=== PATIENT | male | born 1940 | race Caucasian/White ===

== ENCOUNTER 2022-02-01 12:31 | Inpatient (IN) ==
[2022-02-01 14:38] LABS: Basophils % 0.1 % (0.0-0.8); Hematocrit 40.6 VOL% (42.0-52.0); Hemoglobin 13.7 GM/DL (14.0-18.0); Immature Granulocytes % 0.9 %; Immature Granulocytes Absolute 0.09 #; Lymphocytes % 10.5 % (21.2-54.2); Mean Corpuscular HGB Conc 33.7 GM/DL (32-36); Mean Corpuscular Volume 97.8 FL (87-102); Mean Platelet Volume 10.5 FL (9.6-12.0); Monocytes % 10.4 % (1.7-12.7); Neutrophils % 78.1 % (38.7-73.9); Platelet Count 140 T/CUMM (130-400); Red Blood Count 4.15 MC/CUMM (3.8-5.5); Red Cell Distribution Width 12.2 % (9.3-17.3); White Blood Count 9.8 T/CUMM (4-12)
[2022-02-01 14:49] LABS: Albumin 2.8 G/DL (3.4-5.0); Bilirubin,Total 0.9 MG/DL (0.20-1.00); Calcium 9.4 MG/DL (8.5-10.1); Osmolality,Calculated 289.3 MOS/KG (273-304); Potassium 3.9 MMOL/L (3.5-5.1); Total Protein 7.1 G/DL (6.4-8.2)
[2022-02-01 16:08] LABS: Amorphous Crystals,Urine Occasional /HPF (Few); Mucus,Urine Occasional /LPF (Occasional); RBC,Urine 2 /HPF (0-4); Squamous Epithelial Cell,Urine Occasional /HPF (0-10); Urine Appearance Clear (Clear); Urine Color Yellow (Yellow); Urine Specific Gravity 1.015 (1.001-1.035); Urine pH 5.5 (4.5-8.0)
[2022-02-01 16:09] LABS: Bilirubin,Urine Negative (Negative); Blood, Urine Trace mg/dL (Negative); Glucose,Urine (UA) Negative (Negative); Ketones,Urine Negative (Negative); Nitrite,Urine Negative (Negative); Protein,Urine Negative (Negative); Urine Urobilinogen 0.2 eU/dL (<2.0)
[2022-02-01] MEDS ORDERED: GLUCAGON 1 MG VIAL IM PRN (17:11)
[2022-02-01] MEDS ORDERED: DOCUSATE SODIUM 100 MG CAPSULE PO PRN (17:11)
[2022-02-01] MEDS ORDERED: ONDANSETRON 4 MG/2 ML VIAL IV PRN (17:11)
[2022-02-01] MEDS ORDERED: ACETAMINOPHEN 325 MG TABLET PO PRN (17:11)
[2022-02-01] MEDS ORDERED: DEXTROSE 10% 250 ML BAG IV PRN (17:26)
[2022-02-01] MEDS ORDERED: SODIUM CHLORIDE 0.45% 1,000 ML IV SCH (17:30)
[2022-02-01] MEDS: ENOXAPARIN 40 MG/0.4 ML SYRINGE SUBCUT SCH (20:27)
[2022-02-01] MEDS: cefTRIAXone 2,000 MG in SODIUM CHLORIDE 0.9% 100 ML IV SCH (20:27)
[2022-02-01] MEDS: CYCLOBENZAPRINE 10 MG TABLET PO SCH (22:00)
[2022-02-02] MEDS: LEVOTHYROXINE 75 MCG TABLET PO SCH (05:38)
[2022-02-02 05:41] LABS: Basophils % 0.1 % (0.0-0.8); Eosinophils % 0.1 % (0.00-10.9); Hematocrit 39.1 VOL% (42.0-52.0); Hemoglobin 12.6 GM/DL (14.0-18.0); Immature Granulocytes % 0.5 %; Immature Granulocytes Absolute 0.05 #; Lymphocytes # 1.5 10*3/uL (1.4-4.0); Lymphocytes % 15.9 % (21.2-54.2); Mean Corpuscular HGB Conc 32.2 GM/DL (32-36); Mean Corpuscular Volume 101.3 FL (87-102); Mean Platelet Volume 10.7 FL (9.6-12.0); Monocytes # 1.1 10*3/uL (0.11-0.8); Monocytes % 12.4 % (1.7-12.7); Platelet Count 135 T/CUMM (130-400); Red Blood Count 3.86 MC/CUMM (3.8-5.5); Red Cell Distribution Width 12.3 % (9.3-17.3); White Blood Count 9.2 T/CUMM (4-12)
[2022-02-02 05:59] LABS: Calcium 9.2 MG/DL (8.5-10.1); Osmolality,Calculated 288.4 MOS/KG (273-304); Potassium 3.7 MMOL/L (3.5-5.1)
[2022-02-02 06:03] LABS: Folate 17.96 NG/ML (5.38-24.0); Vitamin B12 544 PG/ML (211-911)
[2022-02-02 06:04] LABS: Platelet Estimate Adequate
[2022-02-02 06:05] LABS: % Iron Saturation 9.7 % (18-50); Anisocytosis Slight; Ferritin 207.9 ng/mL (26-388); Macrocytosis Slight
[2022-02-02 06:44] LABS: Sedimentation Rate-Westergren 93 MM/HR (0-20)
[2022-02-02] MEDS: ASPIRIN EC 81 MG TABLET PO SCH ×2 (09:23→22:16)
[2022-02-02] MEDS: CYCLOBENZAPRINE 10 MG TABLET PO SCH ×3 (09:23→22:16)
[2022-02-02] MEDS: FUROSEMIDE 40 MG TABLET PO SCH ×2 (09:23→16:59)
[2022-02-02] MEDS: carvediloL 3.125 MG TABLET PO SCH ×2 (09:23→22:17)
[2022-02-02] MEDS: SOTALOL 80 MG TABLET PO SCH ×2 (09:23→22:16)
[2022-02-02] MEDS: ACETAMINOPHEN 500 MG TABLET PO PRN ×2 (10:22→22:17)
[2022-02-02] MEDS: CHOLECALCIFEROL 5,000 UNIT TABLET PO SCH (16:58)
[2022-02-02] MEDS: cefTRIAXone 2,000 MG in SODIUM CHLORIDE 0.9% 100 ML IV SCH (16:59)
[2022-02-02] MEDS: ENOXAPARIN 40 MG/0.4 ML SYRINGE SUBCUT SCH (17:16)
[2022-02-02] MEDS: ATORVASTATIN 20 MG TABLET PO SCH (22:16)
[2022-02-03] MEDS: LEVOTHYROXINE 75 MCG TABLET PO SCH (06:25)
[2022-02-03] MEDS ORDERED: ALBUTEROL/IPRATROPIUM 3 ML NEB RESP TX ONE (09:11)
[2022-02-03] MEDS ORDERED: ALBUTEROL/IPRATROPIUM 3 ML NEB RESP TX PRN (09:11)
[2022-02-03] MEDS: CYCLOBENZAPRINE 10 MG TABLET PO SCH ×3 (09:17→21:29)
[2022-02-03] MEDS: ACETAMINOPHEN 500 MG TABLET PO PRN ×2 (09:17→21:29)
[2022-02-03] MEDS: CHOLECALCIFEROL 5,000 UNIT TABLET PO SCH (09:17)
[2022-02-03] MEDS: ASPIRIN EC 81 MG TABLET PO SCH ×2 (09:17→21:29)
[2022-02-03] MEDS: carvediloL 3.125 MG TABLET PO SCH ×2 (09:17→21:29)
[2022-02-03] MEDS: FUROSEMIDE 40 MG TABLET PO SCH ×2 (09:17→15:53)
[2022-02-03] MEDS: SOTALOL 80 MG TABLET PO SCH ×2 (09:17→21:29)
[2022-02-03 09:38] LABS: Arterial Base Excess iSTAT 2 MMOL/L (-2.5-2.5); Arterial Bicarbonate iSTAT 26.7 MMOL/L (20-26); Arterial O2 Saturation iSTAT 95 % (95-100); Arterial PCO2 iSTAT 39 MM HG (35-48); Arterial PO2 iSTAT 74 MM HG (80-95); Arterial Total CO2 iSTAT 28 MMO/L (23-27); Arterial pH iSTAT 7.438 (7.35-7.45)
[2022-02-03 10:19] LABS: Basophils % 0.2 % (0.0-0.8); Eosinophils % 0.3 % (0.00-10.9); Hematocrit 42.3 VOL% (42.0-52.0); Hemoglobin 13.9 GM/DL (14.0-18.0); Immature Granulocytes % 0.7 %; Immature Granulocytes Absolute 0.09 #; Lymphocytes # 1.9 10*3/uL (1.4-4.0); Mean Corpuscular HGB Conc 32.9 GM/DL (32-36); Mean Corpuscular Volume 99.3 FL (87-102); Mean Platelet Volume 11.1 FL (9.6-12.0); Monocytes # 0.9 10*3/uL (0.11-0.8); Monocytes % 7.4 % (1.7-12.7); Neutrophils % 76.4 % (38.7-73.9); Platelet Count 169 T/CUMM (130-400); Red Blood Count 4.26 MC/CUMM (3.8-5.5); Red Cell Distribution Width 12.2 % (9.3-17.3); White Blood Count 12.4 T/CUMM (4-12)
[2022-02-03 10:35] LABS: Calcium 9.5 MG/DL (8.5-10.1); Osmolality,Calculated 292.1 MOS/KG (273-304); Potassium 3.9 MMOL/L (3.5-5.1)
[2022-02-03] MEDS ORDERED: FUROSEMIDE 40 MG/4 ML VIAL IV ONE (11:27)
[2022-02-03] MEDS: ASCORBIC ACID 500 MG TABLET PO SCH ×2 (13:50→21:29)
[2022-02-03] MEDS: cefTRIAXone 2,000 MG in SODIUM CHLORIDE 0.9% 100 ML IV SCH (17:21)
[2022-02-03] MEDS: ATORVASTATIN 20 MG TABLET PO SCH (21:29)
[2022-02-04] MEDS ORDERED: FUROSEMIDE 40 MG/4 ML VIAL IV ONE (01:31)
[2022-02-04 05:04] LABS: Basophils % 0.2 % (0.0-0.8); Eosinophils # 0.2 10*3/uL (0.0-0.87); Eosinophils % 1.4 % (0.00-10.9); Hematocrit 39.4 VOL% (42.0-52.0); Hemoglobin 12.8 GM/DL (14.0-18.0); Immature Granulocytes % 0.9 %; Lymphocytes # 1.7 10*3/uL (1.4-4.0); Lymphocytes % 16.3 % (21.2-54.2); Mean Corpuscular HGB Conc 32.5 GM/DL (32-36); Mean Corpuscular Volume 100.3 FL (87-102); Monocytes # 1.1 10*3/uL (0.11-0.8); Monocytes % 10.1 % (1.7-12.7); Neutrophils % 71.1 % (38.7-73.9); Platelet Count 161 T/CUMM (130-400); Red Blood Count 3.93 MC/CUMM (3.8-5.5); Red Cell Distribution Width 12.2 % (9.3-17.3); White Blood Count 10.6 T/CUMM (4-12)
[2022-02-04 05:16] LABS: Calcium 9.6 MG/DL (8.5-10.1); Osmolality,Calculated 287.4 MOS/KG (273-304); Potassium 3.9 MMOL/L (3.5-5.1)
[2022-02-04] MEDS: LEVOTHYROXINE 75 MCG TABLET PO SCH (05:39)
[2022-02-04] MEDS: CYCLOBENZAPRINE 10 MG TABLET PO SCH ×3 (09:27→20:18)
[2022-02-04] MEDS: carvediloL 6.25 MG TABLET PO SCH ×2 (09:27→20:18)
[2022-02-04] MEDS: ASCORBIC ACID 500 MG TABLET PO SCH ×2 (09:27→20:18)
[2022-02-04] MEDS: POLYETHYLENE GLYCOL POWDER 17 GM PACK PO SCH ×2 (09:27→20:18)
[2022-02-04] MEDS: SOTALOL 80 MG TABLET PO SCH ×2 (09:28→20:18)
[2022-02-04] MEDS: CHOLECALCIFEROL 5,000 UNIT TABLET PO SCH (09:28)
[2022-02-04] MEDS: FUROSEMIDE 40 MG TABLET PO SCH ×2 (09:28→16:36)
[2022-02-04] MEDS: ASPIRIN EC 81 MG TABLET PO SCH ×2 (09:28→20:17)
[2022-02-04] MEDS ORDERED: TUBERCULIN SKIN TEST 0.1 ML SYRINGE INTRADERM ONE (15:18)
[2022-02-04] MEDS ORDERED: VANCOMYCIN INJ 1,000 MG in SODIUM CHLORIDE 0.9% 250 ML IV SCH (16:00)
[2022-02-04] MEDS: ACETAMINOPHEN 500 MG TABLET PO PRN ×2 (16:36→22:51)
[2022-02-04] MEDS: TAMSULOSIN 0.4 MG CAPSULE PO SCH (16:38)
[2022-02-04] MEDS: VANCOMYCIN INJ 1,750 MG in SODIUM CHLORIDE 0.9% 500 ML IV SCH (17:51)
[2022-02-04] MEDS: ATORVASTATIN 20 MG TABLET PO SCH (20:18)
[2022-02-05 05:03] LABS: Basophils % 0.2 % (0.0-0.8); Eosinophils # 0.3 10*3/uL (0.0-0.87); Eosinophils % 3.1 % (0.00-10.9); Hematocrit 38.2 VOL% (42.0-52.0); Hemoglobin 12.5 GM/DL (14.0-18.0); Immature Granulocytes % 0.7 %; Immature Granulocytes Absolute 0.06 #; Lymphocytes # 1.8 10*3/uL (1.4-4.0); Mean Corpuscular HGB Conc 32.7 GM/DL (32-36); Mean Corpuscular Volume 99.7 FL (87-102); Mean Platelet Volume 10.5 FL (9.6-12.0); Monocytes # 0.8 10*3/uL (0.11-0.8); Monocytes % 9.4 % (1.7-12.7); Neutrophils % 64.6 % (38.7-73.9); Platelet Count 186 T/CUMM (130-400); Red Blood Count 3.83 MC/CUMM (3.8-5.5); Red Cell Distribution Width 12.1 % (9.3-17.3); White Blood Count 8.1 T/CUMM (4-12)
[2022-02-05 05:30] LABS: Calcium 8.9 MG/DL (8.5-10.1); Osmolality,Calculated 291.4 MOS/KG (273-304); Potassium 3.5 MMOL/L (3.5-5.1)
[2022-02-05] MEDS: VANCOMYCIN INJ 1,750 MG in SODIUM CHLORIDE 0.9% 500 ML IV SCH (05:52)
[2022-02-05] MEDS: LEVOTHYROXINE 75 MCG TABLET PO SCH (05:52)
[2022-02-05] MEDS: POLYETHYLENE GLYCOL POWDER 17 GM PACK PO SCH (08:48)
[2022-02-05] MEDS: CYCLOBENZAPRINE 10 MG TABLET PO SCH ×2 (08:48→15:18)
[2022-02-05] MEDS: ASPIRIN EC 81 MG TABLET PO SCH (08:48)
[2022-02-05] MEDS: ASCORBIC ACID 500 MG TABLET PO SCH (08:48)
[2022-02-05] MEDS: FUROSEMIDE 40 MG TABLET PO SCH ×2 (08:48→15:18)
[2022-02-05] MEDS: CHOLECALCIFEROL 5,000 UNIT TABLET PO SCH (08:49)
[2022-02-05] MEDS: SOTALOL 80 MG TABLET PO SCH (08:49)
[2022-02-05] MEDS: carvediloL 6.25 MG TABLET PO SCH ×2 (08:49→17:06)
[2022-02-05] MEDS: TAMSULOSIN 0.4 MG CAPSULE PO SCH (08:49)
[2022-02-05] MEDS ORDERED: POTASSIUM CHLORIDE 20 MEQ TABLET PO ONE (09:30)
[2022-02-05] MEDS ORDERED: cefTRIAXone 2,000 MG in SODIUM CHLORIDE 0.9% 100 ML IV SCH (10:00)
[2022-02-05] MEDS ORDERED: SOTALOL 80 MG TABLET PO ONE (12:40)
[2022-02-05 16:43] VITALS: BP 102/61
[2022-02-05] MEDS ORDERED: SOTALOL 80 MG TABLET PO SCH (21:00)
[2022-02-06] MEDS ORDERED: SOTALOL 80 MG TABLET PO SCH (09:00)
[2022-02-07 13:34] LABS: Hb A 96.3 % (95.8-98.0); Hb A2 2.6 % (2.0-3.3); Hb F 1.1 % (0.0-0.9)
[2022-02-07 13:41] LABS: Hemoglobin A1 (Alkaline) 95.2 % (96.5-98.5); Hemoglobin A2 (Alkaline) 2.1 % (1.5-3.5); Hemoglobin F (Alkaline) 2.7 %
== END 2022-02-05 17:22 | DRG 552 ==
LOC: EDBD → EDUNIT# → N.ED 12:31 → N.EDINP 12:31 → SUATTDRO 17:11 → N.EDINP 19:01 → N.3E 19:31
PROVIDERS: ADMIT Internal Medicine; ATTEND Internal Medicine Geriatric Medicine

== ENCOUNTER 2022-02-27 12:11 | Inpatient (IN) ==
[2022-02-27 12:52] LABS: Basophils % 0.1 % (0.0-0.8); Eosinophils % 0.2 % (0.00-10.9); Hemoglobin 11.1 GM/DL (14.0-18.0); Immature Granulocytes Absolute 0.09 #; Lymphocytes % 11.4 % (21.2-54.2); Mean Corpuscular HGB Conc 30.8 GM/DL (32-36); Mean Corpuscular Volume 103.2 FL (87-102); Mean Platelet Volume 10.4 FL (9.6-12.0); Monocytes # 0.6 10*3/uL (0.11-0.8); Monocytes % 7.2 % (1.7-12.7); Neutrophils % 80.1 % (38.7-73.9); Platelet Count 199 T/CUMM (130-400); Red Blood Count 3.49 MC/CUMM (3.8-5.5); Red Cell Distribution Width 12.4 % (9.3-17.3); White Blood Count 8.6 T/CUMM (4-12)
[2022-02-27 13:12] LABS: Alanine Aminotransferase 49 U/L (16-61); Albumin 2.1 G/DL (3.4-5.0); Alkaline Phosphatase 133 U/L (45-117); Aspartate Amino Transferase 32 U/L (0-37); Bilirubin,Total < 0.39 MG/DL (0.20-1.00); Blood Urea Nitrogen 26 MG/DL (7-18); Calcium 9.6 MG/DL (8.5-10.1); Carbon Dioxide 39 MMOL/L (21-32); Chloride 96 MMOL/L (98-107); Glucose 107 MG/DL (74-106); Osmolality,Calculated 274.1 MOS/KG (273-304); Potassium 5.3 MMOL/L (3.5-5.1); Sodium 135 MMOL/L (136-145); Total Protein 7.3 G/DL (6.4-8.2)
[2022-02-27] MEDS ORDERED: FUROSEMIDE 40 MG/4 ML VIAL IV STA (13:36)
[2022-02-27 13:47] LABS: Arterial Base Excess iSTAT 13 MMOL/L (-2.5-2.5); Arterial Bicarbonate iSTAT 42.7 MMOL/L (20-26); Arterial O2 Saturation iSTAT 93 % (95-100); Arterial PCO2 iSTAT 91 MM HG (35-48); Arterial PO2 iSTAT 82 MM HG (80-95); Arterial Total CO2 iSTAT 45 MMO/L (23-27); Arterial pH iSTAT 7.281 (7.35-7.45)
[2022-02-27 13:54] LABS: INR 1.1; PT Patient Result 11.9 SECS (10.5-12.0); Partial Thromboplastin Time 28.7 SECS (23.7-32.9)
[2022-02-27 13:57] LABS: Bacteria,Urine Occasional /HPF (Few); Hyaline Casts,Urine 9 /LPF (0-3); Mucus,Urine Occasional /LPF (Occasional); RBC,Urine 7 /HPF (0-4); Squamous Epithelial Cell,Urine Occasional /HPF (0-10)
[2022-02-27 14:00] LABS: Bilirubin,Urine Negative (Negative); Blood, Urine Negative (Negative); Glucose,Urine (UA) Negative (Negative); Ketones,Urine Negative (Negative); Nitrite,Urine Negative (Negative); Protein,Urine Trace mg/dL (Negative); Urine Appearance Slightly Cloudy (Clear); Urine Color Yellow (Yellow); Urine Urobilinogen 0.2 eU/dL (<2.0); Urine pH 5.5 (4.5-8.0)
[2022-02-27 14:30] LABS: Barbiturates Screen,Urine Negative (Negative); Benzodiazepines Screen,Urine Negative (Negative); Cannabinoid Screen,Urine Negative (Negative); Opiate Screen,Urine Negative (Negative); Phencyclidine Screen,Urine Negative (Negative)
[2022-02-27] MEDS ORDERED: ALBUTEROL 2.5 MG/3 ML NEB RESP TX PRN (14:36)
[2022-02-27] MEDS ORDERED: DOCUSATE SODIUM 100 MG CAPSULE PO PRN (14:40)
[2022-02-27] MEDS ORDERED: ACETAMINOPHEN 500 MG TABLET PO PRN (14:40)
[2022-02-27] MEDS ORDERED: ONDANSETRON ODT 4 MG TABLET PO PRN (14:40)
[2022-02-27] MEDS ORDERED: ALBUTEROL/IPRATROPIUM 3 ML NEB RESP TX PRN (14:40)
[2022-02-27] MEDS ORDERED: CYCLOBENZAPRINE 10 MG TABLET PO PRN (14:46)
[2022-02-27 16:16] LABS: Glucose,Urine (UA) Negative (Negative); Ketones,Urine Negative (Negative); Nitrite,Urine Negative (Negative); Protein,Urine Negative (Negative); Urine Appearance Clear (Clear); Urine Color Light Yellow (Yellow); Urine pH 5.5 (4.5-8.0)
[2022-02-27 16:17] LABS: Bilirubin,Urine Negative (Negative); Blood, Urine Large mg/dL (Negative); Urine Urobilinogen 0.2 eU/dL (<2.0)
[2022-02-27 16:24] LABS: Hyaline Casts,Urine 3 /LPF (0-3); Mucus,Urine Occasional /LPF (Occasional); RBC,Urine 53 /HPF (0-4); Squamous Epithelial Cell,Urine Occasional /HPF (0-10)
[2022-02-27] MEDS: FUROSEMIDE 40 MG/4 ML VIAL IV SCH (16:53)
[2022-02-27 17:14] LABS: Arterial Base Excess iSTAT 16 MMOL/L (-2.5-2.5); Arterial Bicarbonate iSTAT 46.2 MMOL/L (20-26); Arterial O2 Saturation iSTAT 99 % (95-100); Arterial PCO2 iSTAT 97 MM HG (35-48); Arterial PO2 iSTAT 195 MM HG (80-95); Arterial Total CO2 iSTAT 49 MMO/L (23-27); Arterial pH iSTAT 7.286 (7.35-7.45)
[2022-02-27] MEDS: cefTRIAXone 1,000 MG in SODIUM CHLORIDE 0.9% 100 ML IV SCH (17:53)
[2022-02-27] MEDS: carvediloL 12.5 MG TABLET PO SCH (17:54)
[2022-02-27] MEDS ORDERED: ETOMIDATE 20 MG/10 ML VIAL IV ONE ×2 (18:19→18:31)
[2022-02-27] MEDS ORDERED: ROCURONIUM 100 MG/10 ML VIAL IV ONE ×2 (18:20→18:32)
[2022-02-27 18:22] LABS: Arterial Base Excess iSTAT 15 MMOL/L (-2.5-2.5); Arterial Bicarbonate iSTAT 45.1 MMOL/L (20-26); Arterial O2 Saturation iSTAT 99 % (95-100); Arterial PCO2 iSTAT 91 MM HG (35-48); Arterial PO2 iSTAT 148 MM HG (80-95); Arterial Total CO2 iSTAT 48 MMO/L (23-27); Arterial pH iSTAT 7.304 (7.35-7.45)
[2022-02-27 19:34] LABS: Arterial Base Excess iSTAT 17 MMOL/L (-2.5-2.5); Arterial Bicarbonate iSTAT 41.4 MMOL/L (20-26); Arterial O2 Saturation iSTAT 99 % (95-100); Arterial PCO2 iSTAT 45 MM HG (35-48); Arterial PO2 iSTAT 107 MM HG (80-95); Arterial Total CO2 iSTAT 43 MMO/L (23-27); Arterial pH iSTAT 7.577 (7.35-7.45)
[2022-02-27 20:13] LABS: Calcium 9.6 MG/DL (8.5-10.1); Potassium 4.7 MMOL/L (3.5-5.1)
[2022-02-27] MEDS: POLYETHYLENE GLYCOL POWDER 17 GM PACK PO SCH (20:38)
[2022-02-27] MEDS: ENOXAPARIN 40 MG/0.4 ML SYRINGE SUBCUT SCH (20:38)
[2022-02-27] MEDS: SOTALOL 80 MG TABLET PO SCH (20:38)
[2022-02-27] MEDS: ASCORBIC ACID 500 MG TABLET PO SCH (20:38)
[2022-02-27] MEDS: MIDAZOLAM 100 MG in SODIUM CHLORIDE 0.9% 80 ML IV PRN (20:46)
[2022-02-27] MEDS: fentaNYL INJ 1,250 MCG in SODIUM CHLORIDE 0.9% 225 ML IV PRN (22:05)
[2022-02-28 01:45] LABS: Arterial Base Excess iSTAT 16 MMOL/L (-2.5-2.5); Arterial Bicarbonate iSTAT 38.6 MMOL/L (20-26); Arterial O2 Saturation iSTAT 96 % (95-100); Arterial PCO2 iSTAT 38 MM HG (35-48); Arterial PO2 iSTAT 66 MM HG (80-95); Arterial Total CO2 iSTAT 40 MMO/L (23-27); Arterial pH iSTAT 7.611 (7.35-7.45)
[2022-02-28 04:55] LABS: Arterial Base Excess iSTAT 14 MMOL/L (-2.5-2.5); Arterial Bicarbonate iSTAT 39.4 MMOL/L (20-26); Arterial O2 Saturation iSTAT 97 % (95-100); Arterial PCO2 iSTAT 52 MM HG (35-48); Arterial PO2 iSTAT 87 MM HG (80-95); Arterial Total CO2 iSTAT 41 MMO/L (23-27)
[2022-02-28] MEDS: LEVOTHYROXINE 75 MCG TABLET PO SCH (05:31)
[2022-02-28 05:32] LABS: Basophils % 0.3 % (0.0-0.8); Eosinophils # 0.1 10*3/uL (0.0-0.87); Eosinophils % 1.9 % (0.00-10.9); Hematocrit 32.3 VOL% (42.0-52.0); Hemoglobin 10.2 GM/DL (14.0-18.0); Immature Granulocytes % 0.5 %; Immature Granulocytes Absolute 0.04 #; Lymphocytes # 0.8 10*3/uL (1.4-4.0); Lymphocytes % 11.1 % (21.2-54.2); Mean Corpuscular HGB Conc 31.6 GM/DL (32-36); Mean Platelet Volume 10.7 FL (9.6-12.0); Monocytes # 0.7 10*3/uL (0.11-0.8); Monocytes % 9.6 % (1.7-12.7); Neutrophils % 76.6 % (38.7-73.9); Platelet Count 200 T/CUMM (130-400); Red Blood Count 3.23 MC/CUMM (3.8-5.5); Red Cell Distribution Width 12.5 % (9.3-17.3); White Blood Count 7.4 T/CUMM (4-12)
[2022-02-28 05:55] LABS: Bilirubin,Total 0.7 MG/DL (0.20-1.00); Calcium 9.2 MG/DL (8.5-10.1); Osmolality,Calculated 282.5 MOS/KG (273-304); Potassium 3.9 MMOL/L (3.5-5.1); Total Protein 5.8 G/DL (6.4-8.2)
[2022-02-28] MEDS: fentaNYL INJ 1,250 MCG in SODIUM CHLORIDE 0.9% 225 ML IV PRN (08:05)
[2022-02-28] MEDS: ASPIRIN EC 81 MG TABLET PO SCH (08:51)
[2022-02-28] MEDS: carvediloL 12.5 MG TABLET PO SCH ×2 (08:51→16:35)
[2022-02-28] MEDS: SOTALOL 80 MG TABLET PO SCH ×2 (08:51→21:13)
[2022-02-28] MEDS: FUROSEMIDE 40 MG/4 ML VIAL IV SCH ×2 (08:51→16:34)
[2022-02-28] MEDS: ASCORBIC ACID 500 MG TABLET PO SCH ×2 (08:52→21:14)
[2022-02-28] MEDS: POLYETHYLENE GLYCOL POWDER 17 GM PACK PO SCH ×2 (08:52→21:13)
[2022-02-28] MEDS: OLANZapine 5 MG TABLET PO SCH (08:52)
[2022-02-28] MEDS: TAMSULOSIN 0.4 MG CAPSULE PO SCH (08:52)
[2022-02-28] MEDS: CHOLECALCIFEROL 5,000 UNIT TABLET PO SCH (08:52)
[2022-02-28] MEDS: MIDAZOLAM 100 MG in SODIUM CHLORIDE 0.9% 80 ML IV PRN (13:58)
[2022-02-28] MEDS: ALBUTEROL/IPRATROPIUM 3 ML NEB RESP TX SCH ×3 (15:20→23:54)
[2022-02-28] MEDS: cefTRIAXone 1,000 MG in SODIUM CHLORIDE 0.9% 100 ML IV SCH (16:35)
[2022-02-28] MEDS: DESITIN 4OZ/NYSTATIN 15 GRAM MIXTURE PASTE TOP SCH ×2 (18:50→21:13)
[2022-02-28] MEDS: ENOXAPARIN 40 MG/0.4 ML SYRINGE SUBCUT SCH (21:13)
[2022-02-28 21:58] LABS: ABG Base Excess 12.2 MMOL/L (-2.5-2.5); ABG HCO3 35.9 MMOL/L (20-26); ABG Oxygen Saturation 96.7 % (95-100); ABG PCO2 42.8 MM HG (35-48); ABG PH 7.536 (7.35-7.45); ABG PO2 81.7 MM HG (80-95); ABG TCO2 32.7 MMOL/L (23-27)
[2022-03-01] MEDS: fentaNYL INJ 1,250 MCG in SODIUM CHLORIDE 0.9% 225 ML IV PRN (00:48)
[2022-03-01 04:35] LABS: Arterial Base Excess iSTAT 11 MMOL/L (-2.5-2.5); Arterial Bicarbonate iSTAT 35.1 MMOL/L (20-26); Arterial O2 Saturation iSTAT 97 % (95-100); Arterial PCO2 iSTAT 41 MM HG (35-48); Arterial PO2 iSTAT 80 MM HG (80-95); Arterial Total CO2 iSTAT 36 MMO/L (23-27)
[2022-03-01 04:54] LABS: Basophils % 0.4 % (0.0-0.8); Eosinophils # 0.1 10*3/uL (0.0-0.87); Eosinophils % 1.4 % (0.00-10.9); Hematocrit 34.6 VOL% (42.0-52.0); Hemoglobin 10.5 GM/DL (14.0-18.0); Immature Granulocytes % 0.6 %; Immature Granulocytes Absolute 0.04 #; Lymphocytes # 1.1 10*3/uL (1.4-4.0); Lymphocytes % 15.8 % (21.2-54.2); Mean Corpuscular HGB Conc 30.3 GM/DL (32-36); Mean Corpuscular Volume 104.2 FL (87-102); Mean Platelet Volume 10.4 FL (9.6-12.0); Monocytes # 0.7 10*3/uL (0.11-0.8); Monocytes % 9.8 % (1.7-12.7); NRBC # 0.02 10*3/uL; Platelet Count 178 T/CUMM (130-400); Red Blood Count 3.32 MC/CUMM (3.8-5.5); Red Cell Distribution Width 13.2 % (9.3-17.3)
[2022-03-01 05:10] LABS: Calcium 8.8 MG/DL (8.5-10.1); Osmolality,Calculated 287.4 MOS/KG (273-304); Potassium 3.5 MMOL/L (3.5-5.1)
[2022-03-01] MEDS: LEVOTHYROXINE 75 MCG TABLET PO SCH (06:39)
[2022-03-01] MEDS: ALBUTEROL/IPRATROPIUM 3 ML NEB RESP TX SCH ×3 (07:15→19:50)
[2022-03-01] MEDS: POLYETHYLENE GLYCOL POWDER 17 GM PACK PO SCH ×2 (08:31→21:14)
[2022-03-01] MEDS: ASCORBIC ACID 500 MG TABLET PO SCH ×2 (08:31→21:14)
[2022-03-01] MEDS: OLANZapine 5 MG TABLET PO SCH (08:31)
[2022-03-01] MEDS: CHOLECALCIFEROL 5,000 UNIT TABLET PO SCH (08:32)
[2022-03-01] MEDS: ASPIRIN EC 81 MG TABLET PO SCH (08:32)
[2022-03-01] MEDS: TAMSULOSIN 0.4 MG CAPSULE PO SCH (08:32)
[2022-03-01] MEDS: carvediloL 12.5 MG TABLET PO SCH ×2 (08:33→16:15)
[2022-03-01] MEDS: DESITIN 4OZ/NYSTATIN 15 GRAM MIXTURE PASTE TOP SCH ×2 (08:33→21:14)
[2022-03-01] MEDS: SOTALOL 80 MG TABLET PO SCH ×2 (08:39→21:13)
[2022-03-01] MEDS: FUROSEMIDE 40 MG/4 ML VIAL IV SCH (09:01)
[2022-03-01] MEDS: cefTRIAXone 1,000 MG in SODIUM CHLORIDE 0.9% 100 ML IV SCH (16:15)
[2022-03-01] MEDS: ENOXAPARIN 40 MG/0.4 ML SYRINGE SUBCUT SCH (21:13)
[2022-03-02] MEDS: ALBUTEROL/IPRATROPIUM 3 ML NEB RESP TX SCH ×4 (00:30→19:36)
[2022-03-02 04:45] LABS: Arterial Base Excess iSTAT 9 MMOL/L (-2.5-2.5); Arterial Bicarbonate iSTAT 34.9 MMOL/L (20-26); Arterial O2 Saturation iSTAT 98 % (95-100); Arterial PCO2 iSTAT 54 MM HG (35-48); Arterial PO2 iSTAT 103 MM HG (80-95); Arterial Total CO2 iSTAT 36 MMO/L (23-27); Arterial pH iSTAT 7.419 (7.35-7.45)
[2022-03-02 04:47] LABS: Basophils % 0.2 % (0.0-0.8); Eosinophils # 0.2 10*3/uL (0.0-0.87); Eosinophils % 2.5 % (0.00-10.9); Hematocrit 32.6 VOL% (42.0-52.0); Hemoglobin 10.4 GM/DL (14.0-18.0); Immature Granulocytes % 0.8 %; Immature Granulocytes Absolute 0.07 #; Lymphocytes % 12.6 % (21.2-54.2); Mean Corpuscular HGB Conc 31.9 GM/DL (32-36); Mean Corpuscular Volume 99.1 FL (87-102); Mean Platelet Volume 10.3 FL (9.6-12.0); Monocytes # 0.8 10*3/uL (0.11-0.8); Neutrophils % 73.9 % (38.7-73.9); Platelet Count 199 T/CUMM (130-400); Red Blood Count 3.29 MC/CUMM (3.8-5.5); Red Cell Distribution Width 13.2 % (9.3-17.3); White Blood Count 8.3 T/CUMM (4-12)
[2022-03-02 05:07] LABS: Albumin 1.7 G/DL (3.4-5.0); Bilirubin,Total 0.8 MG/DL (0.20-1.00); Calcium 8.5 MG/DL (8.5-10.1); Osmolality,Calculated 293.5 MOS/KG (273-304); Potassium 3.2 MMOL/L (3.5-5.1); Total Protein 6.5 G/DL (6.4-8.2)
[2022-03-02] MEDS: LEVOTHYROXINE 75 MCG TABLET PO SCH (06:00)
[2022-03-02] MEDS: ASPIRIN EC 81 MG TABLET PO SCH (09:02)
[2022-03-02] MEDS: POLYETHYLENE GLYCOL POWDER 17 GM PACK PO SCH ×2 (09:02→20:00)
[2022-03-02] MEDS: CHOLECALCIFEROL 5,000 UNIT TABLET PO SCH (09:02)
[2022-03-02] MEDS: OLANZapine 5 MG TABLET PO SCH (09:02)
[2022-03-02] MEDS: TAMSULOSIN 0.4 MG CAPSULE PO SCH (09:02)
[2022-03-02] MEDS: ASCORBIC ACID 500 MG TABLET PO SCH ×2 (09:02→20:00)
[2022-03-02] MEDS: DESITIN 4OZ/NYSTATIN 15 GRAM MIXTURE PASTE TOP SCH ×2 (09:03→20:00)
[2022-03-02] MEDS: carvediloL 12.5 MG TABLET PO SCH ×2 (09:13→16:54)
[2022-03-02] MEDS: SOTALOL 80 MG TABLET PO SCH ×2 (09:13→20:00)
[2022-03-02] MEDS ORDERED: LIDOCAINE 2% TOP JELLY 20 ML VIAL INTRAURETH ONE ×2 (11:47→11:49)
[2022-03-02] MEDS: metroNIDAZOLE INJ 500 MG/100 ML PREMIX IV SCH ×2 (12:18→19:41)
[2022-03-02] MEDS: CEFEPIME 1,000 MG in SODIUM CHLORIDE 0.9% 100 ML IV SCH ×2 (12:18→17:48)
[2022-03-02] MEDS: ALBUMIN 25% 12.5 GM/50 ML VIAL IV SCH ×2 (14:40→22:05)
[2022-03-02] MEDS: ENOXAPARIN 40 MG/0.4 ML SYRINGE SUBCUT SCH (20:00)
[2022-03-02] MEDS: POTASSIUM BICARB EFFERVESCENT 20 MEQ TAB.EFF PER TUBE PRN (22:05)
[2022-03-03] MEDS: POTASSIUM BICARB EFFERVESCENT 20 MEQ TAB.EFF PER TUBE PRN ×5 (00:21→16:09)
[2022-03-03] MEDS: CEFEPIME 1,000 MG in SODIUM CHLORIDE 0.9% 100 ML IV SCH ×4 (00:21→18:08)
[2022-03-03] MEDS: ALBUTEROL/IPRATROPIUM 3 ML NEB RESP TX SCH ×4 (00:31→19:15)
[2022-03-03] MEDS: metroNIDAZOLE INJ 500 MG/100 ML PREMIX IV SCH ×3 (04:10→19:29)
[2022-03-03 04:39] LABS: Arterial Base Excess iSTAT 9 MMOL/L (-2.5-2.5); Arterial Bicarbonate iSTAT 34.5 MMOL/L (20-26); Arterial O2 Saturation iSTAT 99 % (95-100); Arterial PCO2 iSTAT 53 MM HG (35-48); Arterial PO2 iSTAT 120 MM HG (80-95); Arterial Total CO2 iSTAT 36 MMO/L (23-27); Arterial pH iSTAT 7.423 (7.35-7.45)
[2022-03-03] MEDS: ALBUMIN 25% 12.5 GM/50 ML VIAL IV SCH (05:12)
[2022-03-03] MEDS: LEVOTHYROXINE 75 MCG TABLET PO SCH (05:13)
[2022-03-03 06:09] LABS: Basophils % 0.1 % (0.0-0.8); Eosinophils # 0.2 10*3/uL (0.0-0.87); Eosinophils % 2.9 % (0.00-10.9); Hematocrit 32.4 VOL% (42.0-52.0); Hemoglobin 10.1 GM/DL (14.0-18.0); Immature Granulocytes % 0.4 %; Immature Granulocytes Absolute 0.03 #; Lymphocytes # 0.8 10*3/uL (1.4-4.0); Lymphocytes % 11.1 % (21.2-54.2); Mean Corpuscular HGB Conc 31.2 GM/DL (32-36); Mean Corpuscular Volume 100.3 FL (87-102); Mean Platelet Volume 10.9 FL (9.6-12.0); Monocytes # 0.8 10*3/uL (0.11-0.8); Monocytes % 10.2 % (1.7-12.7); Neutrophils % 75.3 % (38.7-73.9); Platelet Count 186 T/CUMM (130-400); Red Blood Count 3.23 MC/CUMM (3.8-5.5); Red Cell Distribution Width 13.2 % (9.3-17.3); White Blood Count 7.6 T/CUMM (4-12)
[2022-03-03 06:19] LABS: Albumin 1.8 G/DL (3.4-5.0); Bilirubin,Total 0.6 MG/DL (0.20-1.00); Osmolality,Calculated 286.1 MOS/KG (273-304); Potassium 3.5 MMOL/L (3.5-5.1); Total Protein 6.2 G/DL (6.4-8.2)
[2022-03-03] MEDS: POLYETHYLENE GLYCOL POWDER 17 GM PACK PO SCH ×2 (09:11→21:06)
[2022-03-03] MEDS: ASCORBIC ACID 500 MG TABLET PO SCH ×2 (09:11→21:07)
[2022-03-03] MEDS: TAMSULOSIN 0.4 MG CAPSULE PO SCH (09:11)
[2022-03-03] MEDS: ASPIRIN EC 81 MG TABLET PO SCH (09:11)
[2022-03-03] MEDS: CHOLECALCIFEROL 5,000 UNIT TABLET PO SCH (09:11)
[2022-03-03] MEDS: carvediloL 12.5 MG TABLET PO SCH (09:13)
[2022-03-03] MEDS: SOTALOL 80 MG TABLET PO SCH ×2 (09:14→21:07)
[2022-03-03] MEDS: DESITIN 4OZ/NYSTATIN 15 GRAM MIXTURE PASTE TOP SCH ×2 (09:14→21:07)
[2022-03-03] MEDS: MORPHINE 2 MG/1 ML SYRINGE IV PRN (10:01)
[2022-03-03] MEDS ORDERED: FUROSEMIDE 40 MG/4 ML VIAL IV ONE (10:06)
[2022-03-03] MEDS: FLUCONAZOLE 200 MG TABLET PO SCH (14:55)
[2022-03-03] MEDS: DEXMEDETOMIDINE 200 MCG in SODIUM CHLORIDE 0.9% 48 ML IV PRN ×2 (19:30→23:58)
[2022-03-03] MEDS: ENOXAPARIN 40 MG/0.4 ML SYRINGE SUBCUT SCH (21:07)
[2022-03-04] MEDS: CEFEPIME 1,000 MG in SODIUM CHLORIDE 0.9% 100 ML IV SCH ×4 (00:04→18:13)
[2022-03-04] MEDS: ALBUTEROL/IPRATROPIUM 3 ML NEB RESP TX SCH ×4 (00:08→18:46)
[2022-03-04] MEDS: metroNIDAZOLE INJ 500 MG/100 ML PREMIX IV SCH ×3 (04:00→19:09)
[2022-03-04 04:01] LABS: Arterial Base Excess iSTAT 7 MMOL/L (-2.5-2.5); Arterial Bicarbonate iSTAT 30.6 MMOL/L (20-26); Arterial O2 Saturation iSTAT 98 % (95-100); Arterial PCO2 iSTAT 39 MM HG (35-48); Arterial PO2 iSTAT 93 MM HG (80-95); Arterial Total CO2 iSTAT 32 MMO/L (23-27); Arterial pH iSTAT 7.505 (7.35-7.45)
[2022-03-04] MEDS: DEXMEDETOMIDINE 400 MCG in SODIUM CHLORIDE 0.9% 96 ML IV PRN ×2 (04:46→22:01)
[2022-03-04 05:03] LABS: Basophils % 0.3 % (0.0-0.8); Eosinophils # 0.1 10*3/uL (0.0-0.87); Eosinophils % 1.8 % (0.00-10.9); Hematocrit 29.3 VOL% (42.0-52.0); Hemoglobin 9.4 GM/DL (14.0-18.0); Immature Granulocytes % 0.8 %; Immature Granulocytes Absolute 0.06 #; Lymphocytes # 1.2 10*3/uL (1.4-4.0); Lymphocytes % 15.4 % (21.2-54.2); Mean Corpuscular HGB Conc 32.1 GM/DL (32-36); Mean Corpuscular Volume 98.3 FL (87-102); Mean Platelet Volume 11.1 FL (9.6-12.0); Monocytes # 0.7 10*3/uL (0.11-0.8); Monocytes % 8.9 % (1.7-12.7); Neutrophils % 72.8 % (38.7-73.9); Platelet Count 192 T/CUMM (130-400); Red Blood Count 2.98 MC/CUMM (3.8-5.5); Red Cell Distribution Width 13.2 % (9.3-17.3); White Blood Count 7.6 T/CUMM (4-12)
[2022-03-04 05:20] LABS: Calcium 8.6 MG/DL (8.5-10.1); Osmolality,Calculated 296.7 MOS/KG (273-304); Potassium 3.6 MMOL/L (3.5-5.1)
[2022-03-04] MEDS: LEVOTHYROXINE 75 MCG TABLET PO SCH (05:29)
[2022-03-04] MEDS: POTASSIUM BICARB EFFERVESCENT 20 MEQ TAB.EFF PER TUBE PRN ×2 (06:26→12:02)
[2022-03-04] MEDS: ASPIRIN EC 81 MG TABLET PO SCH (09:55)
[2022-03-04] MEDS: CHOLECALCIFEROL 5,000 UNIT TABLET PO SCH (09:56)
[2022-03-04] MEDS: FLUCONAZOLE 200 MG TABLET PO SCH (09:56)
[2022-03-04] MEDS: ASCORBIC ACID 500 MG TABLET PO SCH ×2 (09:56→21:31)
[2022-03-04] MEDS: TAMSULOSIN 0.4 MG CAPSULE PO SCH (09:56)
[2022-03-04] MEDS: SOTALOL 80 MG TABLET PO SCH ×2 (09:57→21:31)
[2022-03-04] MEDS: POLYETHYLENE GLYCOL POWDER 17 GM PACK PO SCH ×2 (09:57→21:32)
[2022-03-04] MEDS: DESITIN 4OZ/NYSTATIN 15 GRAM MIXTURE PASTE TOP SCH ×2 (09:59→21:32)
[2022-03-04] MEDS ORDERED: FUROSEMIDE 40 MG/4 ML VIAL IV ONE (15:16)
[2022-03-04] MEDS ORDERED: POTASSIUM CHLORIDE 20 MEQ TABLET PO ONE (15:17)
[2022-03-04] MEDS: ENOXAPARIN 40 MG/0.4 ML SYRINGE SUBCUT SCH (21:31)
[2022-03-05] MEDS: ALBUTEROL/IPRATROPIUM 3 ML NEB RESP TX SCH ×4 (00:34→19:05)
[2022-03-05] MEDS: CEFEPIME 1,000 MG in SODIUM CHLORIDE 0.9% 100 ML IV SCH ×4 (00:36→17:43)
[2022-03-05] MEDS: metroNIDAZOLE INJ 500 MG/100 ML PREMIX IV SCH (04:25)
[2022-03-05 05:35] LABS: Basophils % 0.1 % (0.0-0.8); Eosinophils # 0.2 10*3/uL (0.0-0.87); Eosinophils % 2.4 % (0.00-10.9); Hematocrit 28.9 VOL% (42.0-52.0); Hemoglobin 9.2 GM/DL (14.0-18.0); Immature Granulocytes % 0.8 %; Immature Granulocytes Absolute 0.06 #; Mean Corpuscular HGB Conc 31.8 GM/DL (32-36); Mean Corpuscular Volume 99.3 FL (87-102); Mean Platelet Volume 11.1 FL (9.6-12.0); Monocytes # 0.8 10*3/uL (0.11-0.8); Monocytes % 10.9 % (1.7-12.7); Neutrophils % 72.8 % (38.7-73.9); Platelet Count 188 T/CUMM (130-400); Red Blood Count 2.91 MC/CUMM (3.8-5.5); Red Cell Distribution Width 13.4 % (9.3-17.3); White Blood Count 7.4 T/CUMM (4-12)
[2022-03-05 05:47] LABS: Calcium 8.9 MG/DL (8.5-10.1); Osmolality,Calculated 296.7 MOS/KG (273-304); Potassium 3.6 MMOL/L (3.5-5.1)
[2022-03-05] MEDS: LEVOTHYROXINE 75 MCG TABLET PO SCH (06:11)
[2022-03-05] MEDS: POTASSIUM BICARB EFFERVESCENT 20 MEQ TAB.EFF PER TUBE PRN ×2 (07:36→09:05)
[2022-03-05 08:03] LABS: Arterial Base Excess iSTAT 7 MMOL/L (-2.5-2.5); Arterial Bicarbonate iSTAT 30.9 MMOL/L (20-26); Arterial O2 Saturation iSTAT 95 % (95-100); Arterial PCO2 iSTAT 42 MM HG (35-48); Arterial PO2 iSTAT 69 MM HG (80-95); Arterial Total CO2 iSTAT 32 MMO/L (23-27); Arterial pH iSTAT 7.479 (7.35-7.45)
[2022-03-05] MEDS: FUROSEMIDE 40 MG/4 ML VIAL IV SCH (09:03)
[2022-03-05] MEDS: ASPIRIN EC 81 MG TABLET PO SCH (09:04)
[2022-03-05] MEDS: CHOLECALCIFEROL 5,000 UNIT TABLET PO SCH (09:04)
[2022-03-05] MEDS: ASCORBIC ACID 500 MG TABLET PO SCH ×2 (09:04→21:26)
[2022-03-05] MEDS: SOTALOL 80 MG TABLET PO SCH ×2 (09:05→21:26)
[2022-03-05] MEDS: FLUCONAZOLE 200 MG TABLET PO SCH (09:05)
[2022-03-05] MEDS: TAMSULOSIN 0.4 MG CAPSULE PO SCH (09:05)
[2022-03-05] MEDS: DESITIN 4OZ/NYSTATIN 15 GRAM MIXTURE PASTE TOP SCH ×2 (09:06→21:26)
[2022-03-05] MEDS: POLYETHYLENE GLYCOL POWDER 17 GM PACK PO SCH ×2 (09:07→21:26)
[2022-03-05 11:27] LABS: Arterial Base Excess iSTAT 8 MMOL/L (-2.5-2.5); Arterial Bicarbonate iSTAT 35.2 MMOL/L (20-26); Arterial O2 Saturation iSTAT 98 % (95-100); Arterial PCO2 iSTAT 67 MM HG (35-48); Arterial PO2 iSTAT 121 MM HG (80-95); Arterial Total CO2 iSTAT 37 MMO/L (23-27); Arterial pH iSTAT 7.329 (7.35-7.45)
[2022-03-05 12:39] VITALS: BP 109/70
[2022-03-05 14:15] LABS: Arterial Base Excess iSTAT 7 MMOL/L (-2.5-2.5); Arterial Bicarbonate iSTAT 32.8 MMOL/L (20-26); Arterial O2 Saturation iSTAT 99 % (95-100); Arterial PCO2 iSTAT 54 MM HG (35-48); Arterial PO2 iSTAT 140 MM HG (80-95); Arterial Total CO2 iSTAT 34 MMO/L (23-27); Arterial pH iSTAT 7.396 (7.35-7.45)
[2022-03-05] MEDS: ENOXAPARIN 40 MG/0.4 ML SYRINGE SUBCUT SCH (21:26)
[2022-03-06] MEDS: ALBUTEROL/IPRATROPIUM 3 ML NEB RESP TX SCH ×4 (00:12→19:28)
[2022-03-06] MEDS: CEFEPIME 1,000 MG in SODIUM CHLORIDE 0.9% 100 ML IV SCH ×4 (00:43→18:17)
[2022-03-06 04:54] LABS: Arterial Base Excess iSTAT 7 MMOL/L (-2.5-2.5); Arterial Bicarbonate iSTAT 31.8 MMOL/L (20-26); Arterial O2 Saturation iSTAT 97 % (95-100); Arterial PCO2 iSTAT 45 MM HG (35-48); Arterial PO2 iSTAT 88 MM HG (80-95); Arterial Total CO2 iSTAT 33 MMO/L (23-27); Arterial pH iSTAT 7.458 (7.35-7.45)
[2022-03-06 05:13] LABS: Basophils % 0.1 % (0.0-0.8); Eosinophils # 0.1 10*3/uL (0.0-0.87); Eosinophils % 1.3 % (0.00-10.9); Hematocrit 29.1 VOL% (42.0-52.0); Hemoglobin 9.3 GM/DL (14.0-18.0); Immature Granulocytes % 0.8 %; Immature Granulocytes Absolute 0.07 #; Lymphocytes # 0.9 10*3/uL (1.4-4.0); Lymphocytes % 10.3 % (21.2-54.2); Mean Platelet Volume 11.3 FL (9.6-12.0); Monocytes # 0.9 10*3/uL (0.11-0.8); Monocytes % 10.7 % (1.7-12.7); Neutrophils % 76.8 % (38.7-73.9); Platelet Count 215 T/CUMM (130-400); Red Blood Count 2.94 MC/CUMM (3.8-5.5); Red Cell Distribution Width 13.4 % (9.3-17.3); White Blood Count 8.3 T/CUMM (4-12)
[2022-03-06 05:32] LABS: Calcium 8.8 MG/DL (8.5-10.1); Osmolality,Calculated 298.1 MOS/KG (273-304); Potassium 4.1 MMOL/L (3.5-5.1)
[2022-03-06] MEDS: LEVOTHYROXINE 75 MCG TABLET PO SCH (06:31)
[2022-03-06] MEDS: MICAFUNGIN 100 MG in SODIUM CHLORIDE 0.9% 100 ML IV SCH (09:57)
[2022-03-06] MEDS: FUROSEMIDE 40 MG/4 ML VIAL IV SCH (09:57)
[2022-03-06] MEDS: DESITIN 4OZ/NYSTATIN 15 GRAM MIXTURE PASTE TOP SCH ×2 (09:58→20:53)
[2022-03-06] MEDS: TAMSULOSIN 0.4 MG CAPSULE PO SCH (09:58)
[2022-03-06] MEDS: carvediloL 3.125 MG TABLET PO SCH ×2 (09:58→20:52)
[2022-03-06] MEDS: ASCORBIC ACID 500 MG TABLET PO SCH ×2 (09:58→20:52)
[2022-03-06] MEDS: CHOLECALCIFEROL 5,000 UNIT TABLET PO SCH (09:58)
[2022-03-06] MEDS: ASPIRIN EC 81 MG TABLET PO SCH (09:58)
[2022-03-06] MEDS: SOTALOL 80 MG TABLET PO SCH ×2 (09:58→20:52)
[2022-03-06] MEDS: POLYETHYLENE GLYCOL POWDER 17 GM PACK PO SCH ×2 (09:58→20:53)
[2022-03-06 13:57] LABS: Arterial Base Excess iSTAT 10 MMOL/L (-2.5-2.5); Arterial Bicarbonate iSTAT 32.9 MMOL/L (20-26); Arterial O2 Saturation iSTAT 98 % (95-100); Arterial PCO2 iSTAT 38 MM HG (35-48); Arterial PO2 iSTAT 96 MM HG (80-95); Arterial Total CO2 iSTAT 34 MMO/L (23-27)
[2022-03-06] MEDS: ENOXAPARIN 40 MG/0.4 ML SYRINGE SUBCUT SCH (20:53)
[2022-03-07] MEDS: CEFEPIME 1,000 MG in SODIUM CHLORIDE 0.9% 100 ML IV SCH ×2 (00:46→06:22)
[2022-03-07 04:41] LABS: Arterial Base Excess iSTAT 7 MMOL/L (-2.5-2.5); Arterial Bicarbonate iSTAT 31.5 MMOL/L (20-26); Arterial O2 Saturation iSTAT 96 % (95-100); Arterial PCO2 iSTAT 44 MM HG (35-48); Arterial PO2 iSTAT 78 MM HG (80-95); Arterial Total CO2 iSTAT 33 MMO/L (23-27); Arterial pH iSTAT 7.462 (7.35-7.45)
[2022-03-07] MEDS: MORPHINE 2 MG/1 ML SYRINGE IV PRN (04:47)
[2022-03-07 05:55] LABS: Basophils % 0.2 % (0.0-0.8); Eosinophils % 0.1 % (0.00-10.9); Hematocrit 31.6 VOL% (42.0-52.0); Immature Granulocytes % 0.8 %; Immature Granulocytes Absolute 0.08 #; Lymphocytes # 1.1 10*3/uL (1.4-4.0); Lymphocytes % 11.5 % (21.2-54.2); Mean Corpuscular HGB Conc 31.6 GM/DL (32-36); Mean Corpuscular Volume 100.3 FL (87-102); Mean Platelet Volume 11.1 FL (9.6-12.0); Monocytes % 10.2 % (1.7-12.7); Neutrophils % 77.2 % (38.7-73.9); Platelet Count 286 T/CUMM (130-400); Red Blood Count 3.15 MC/CUMM (3.8-5.5); Red Cell Distribution Width 13.5 % (9.3-17.3); White Blood Count 9.5 T/CUMM (4-12)
[2022-03-07 06:21] LABS: Calcium 9.5 MG/DL (8.5-10.1); Potassium 4.1 MMOL/L (3.5-5.1)
[2022-03-07] MEDS: LEVOTHYROXINE 75 MCG TABLET PO SCH (06:23)
[2022-03-07] MEDS: ALBUTEROL/IPRATROPIUM 3 ML NEB RESP TX SCH ×2 (06:48)
[2022-03-07] MEDS: FUROSEMIDE 40 MG/4 ML VIAL IV SCH (09:39)
[2022-03-07] MEDS: MICAFUNGIN 100 MG in SODIUM CHLORIDE 0.9% 100 ML IV SCH (09:40)
[2022-03-07] MEDS: ASPIRIN EC 81 MG TABLET PO SCH (09:58)
[2022-03-07] MEDS: POLYETHYLENE GLYCOL POWDER 17 GM PACK PO SCH (09:59)
[2022-03-07] MEDS: ASCORBIC ACID 500 MG TABLET PO SCH (09:59)
[2022-03-07] MEDS: CHOLECALCIFEROL 5,000 UNIT TABLET PO SCH (09:59)
[2022-03-07] MEDS: TAMSULOSIN 0.4 MG CAPSULE PO SCH (09:59)
[2022-03-07] MEDS: carvediloL 3.125 MG TABLET PO SCH (09:59)
[2022-03-07] MEDS: DESITIN 4OZ/NYSTATIN 15 GRAM MIXTURE PASTE TOP SCH (09:59)
[2022-03-07] MEDS: SOTALOL 80 MG TABLET PO SCH (09:59)
== END 2022-03-07 12:37 | DRG 207 ==
LOC: N.ED 12:11 → N.EDINP 14:36 → SUATTDRO 14:36 → N.CC 15:07
PROVIDERS: ADMIT Family Medicine; ATTEND Internal Medicine